=== PATIENT | female | born 1980 | race African-American/Black ===

== ENCOUNTER 2017-09-13 19:26 | Outpatient (CLI) | payer SELFPAY ==
[2017-09-13 20:03] VITALS: BP 124/75
[2017-09-13] MEDS ORDERED: LACTATED RINGERS 500 ML IV ONE (20:29)
[2017-09-13 21:04] LABS: Bilirubin,Urine NEG (Negative); Blood,Urine SM (Negative); Color,Urine Yellow (Yellow); Mucus,Urine FEW /HPF; Protein,Urine <15 mg/dL mg/dL (Negative)
== END 2017-09-13 22:08 | disposition home or self-care (01) ==
LOC: TRG 19:26
PROVIDERS: ATTEND Obstetrics & Gynecology
DX: O47.03 False labor before 37 completed weeks of gestation, third trimester (principal); Z3A.36 36 weeks gestation of pregnancy
CPT/HCPCS: 59025; 81001

== ENCOUNTER 2017-09-14 19:16 | Inpatient (IN) | payer OTHER ==
[2017-09-14] MEDS: LACTATED RINGERS 1,000 ML IV SCH ×2 (22:00→23:38)
[2017-09-14] MEDS ORDERED: LACTATED RINGERS 1,000 ML ONE (22:06)
[2017-09-14] MEDS ORDERED: PITOCin/NS 20 UNIT/1000ML DRIP 20,000 MILLIUNITS/1,000 ML BAG IV ONE (22:08)
[2017-09-14] MEDS ORDERED: SUBLIMAZE ONE (22:20)
[2017-09-14] MEDS ORDERED: SUBLIMAZE IV ONE (22:31)
[2017-09-14 22:44] LABS: Hematocrit 35.9 % (30.3-42.9); Hemoglobin 12.3 gm/dl (10.1-14.3); Mean Corpuscular HGB Conc 34 % (30-34); Mean Corpuscular Hemoglobin 31 pg (28-32); Mean Corpuscular Volume 90 fl (79-97); Platelet Count 172 K/mm3 (140-440); Red Blood Count 4.01 M/mm3 (3.65-5.03); Red Cell Distribution Width 14.7 % (13.2-15.2)
[2017-09-15] MEDS ORDERED: TYLENOL PO PRN (00:06)
[2017-09-15] MEDS ORDERED: BENADRYL PO PRN (00:06)
[2017-09-15] MEDS ORDERED: DULCOLAX PR PRN (00:06)
[2017-09-15] MEDS ORDERED: ZOFRAN IV PRN (00:06)
[2017-09-15] MEDS ORDERED: TUCKS PAD TP PRN (00:06)
[2017-09-15] MEDS ORDERED: MILK OF MAGNESIA PO PRN (00:06)
[2017-09-15] MEDS ORDERED: LANSINOH TP PRN (00:06)
[2017-09-15] MEDS ORDERED: NORCO 5/325 PO PRN (00:06)
[2017-09-15] MEDS ORDERED: PHENERGAN PO PRN (00:06)
--- NOTE | 2017-09-15 00:16 | History and Physical Report ---
History of Present Illness Date of examination: 09/14/17 Date of admission: 09/14/17 22:09 Chief complaint: Intense uterine contractions History of present illness: 36 yo Fe PEDRITO 10/05/17 37w0d presents in active labor. 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 records not available on admission (will request in am). Pt denies any medical history, problems with . 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 denies: smoking, alcohol abuse, prescription drug abuse, IV drug use - Obstetrical History Expected Date of Delivery: 10/05/17 Actual Gestation: 37 Week(s) 1 Day(s) : 11 Para: 7 Hx # Term Pregnancies: 7 Number of Pregnancies: 0 Spontaneous Abortions: 0 Induced : 3 Number of Living Children: 7 Medications and Allergies Allergies Allergy/AdvReac Type Severity Reaction Status Date / Time No Known Allergies Allergy Unverified 11/18/13 18:27 Home Medications Medication Instructions Recorded Confirmed Last Taken Type Vits96/Iron Fum/Folic 1 each PO QDAY 11/18/13 11/18/13 11/17/13 15:00 History [ Tablet] Ferrous Sulfate [Iron Supplement] 325 mg PO BID #60 tablet 11/19/13 Unknown Rx Ibuprofen [Motrin 600 MG tab] 600 mg PO Q6H #30 tablet 11/19/13 Unknown Rx oxyCODONE /ACETAMINOPHEN [Percocet 2 tab PO Q4H PRN #30 tablet 11/19/13 Unknown Rx 5/325 mg] Active Meds: Active Medications Acetaminophen (Tylenol) 650 mg PO Q4H PRN PRN Reason: Pain MILD(1-3)/Fever >100.5/CULVER Acetaminophen/Hydrocodone Bitart (Slemp 5/325) 2 each PO Q6H PRN PRN Reason: Pain, Moderate (4-6) Bisacodyl (Dulcolax) 10 mg RI BID PRN PRN Reason: Constipation Diphenhydramine HCl (Benadryl) 25 mg PO Q6H PRN PRN Reason: Itching Lactated Ringer's (Lactated Ringers) 1,000 mls @ 125 mls/hr IV DIRECT DERREK Last Admin: 09/14/17 23:38 Dose: 125 mls/hr Ibuprofen (Motrin) 600 mg PO Q6HR [facility] Influenza Virus Vaccine Quadrival (Fluarix Quad [id number](36 Mos+) 0.5 ml IM .ONCE ONE Stop: 09/15/17 12:01 Magnesium Hydroxide (Milk Of Magnesia) 30 ml PO HS PRN PRN Reason: Constipation Multi-Ingredient Ointment (Lansinoh) 1 applic TP PRN PRN PRN Reason: Sore Nipples Ondansetron HCl (Zofran) 4 mg IV Q8H PRN PRN Reason: Nausea And Vomiting Promethazine HCl (Phenergan) 25 mg PO Q6H PRN PRN Reason: Nausea And Vomiting Sodium Chloride (Sodium Chloride Flush Syringe 10 Ml) 10 ml IV PRN PRN PRN Reason: LINE FLUSH Witch Dorothea/Glycerin (Tucks Pad) 1 each TP PRN PRN PRN Reason: Hemorrhoid/cleansing/soothing Review of Systems All systems: negative Eyes: normal appearance Cardiovascular: no chest pain, no shortness of breath Respiratory: no shortness of breath Gastrointestinal: no abdominal pain, no nausea, no vomiting, no diarrhea Genitourinary: normal appearance, contractions, no leakage of fluid, no genital sores Rectal Exam: hemorrhoids Integumentary: no rash, no sores, no lesions - Vital Signs Vital signs: Vital Signs Pulse BP 67 117/76 09/14/17 19:43 09/14/17 19:43 Temp Pulse Resp BP Pulse Ox 98.1 F 68 18 115/57 100 09/14/17 22:29 09/15/17 00:13 09/14/17 22:29 09/15/17 00:06 09/15/17 00:13 - Physical Exam Cardiovascular: Regular rate, Normal S1, Normal S2 Lungs: Positive: Clear to auscultation, Normal air movement Abdomen: Positive: normal appearance, soft, normal bowel sounds. Negative: distention Genitourinary (Female): Positive: normal external genitalia, normal perenium Vagina: Positive: normal moisture Uterus: Positive: enlarged (Gravid) Anus/Rectum: Positive: normal perianal skin, hemorrhoids Extremities: Positive: normal Deep Tendon Reflex Grade: Normal +2 - Obstetrical FHR: category 1 Uterine Contraction Monitor Mode: External Cervical Dilatation: 7 (3/60/-3 in Triage) Cervical Effacement Percentage: 70 station: 0 Uterine Contraction Pattern: Regular Uterine Tone Measurement Phase: Resting Uterine Contraction Intensity: Strong/Firm Results Result Diagrams: 09/14/17 22:00 All other labs normal. Assessment and Plan A: [place]: PEDRITO 10/05/17: 37w0d Active labor Category 1 tracing P: Admit to L&D Routine antepartum orders Expect Will request records in am
--- NOTE | 2017-09-15 00:37 | Procedure Note ---
OB Delivery Note - Delivery Date of Delivery: 09/14/17 (23:49) Surgeon: AYSHA STOVER (SUSY) Estimated blood loss: 100cc - Vaginal Delivery presentation: vertex Delivery position: OP Delivery induction: none Delivery augmentation: rupture of membranes Delivery monitor: external FHT, external uterine Route of delivery: Delivery placenta: spontaneous Delivery cord: 3 umbilical vessels Episiotomy: none Delivery laceration: none Anesthesia: intravenous Delivery comments: viable female , straight OP position, over intact perineum at 23:49. Infant placed on mothers abdomen, [id number]. delayed cord clamping then cut by myself. Spontaneous gómez delivery of intact placenta at 23:55. FF@U-2, scant bleeding. No tears or lacerations. EBL 100cc. Infant and mother left in stable condition in L&D. - A at 1 minute: 8 at 5 minutes: 9 Gender: Female (3456 grams, 7lbs 10oz, 19")
[2017-09-15] MEDS ORDERED: SODIUM CHLORIDE FLUSH SYRINGE 10 ML IV PRN (01:00)
[2017-09-15] MEDS ORDERED: PITOCin/NS 20 UNIT/1000ML DRIP 20,000 MILLIUNITS/1,000 ML BAG IV ONE (01:11)
[2017-09-15] MEDS: MOTRIN PO SCH ×4 (01:43→18:35)
--- NOTE | 2017-09-15 10:28 | Progress Note ---
Assessment and Plan A: PP Day #1 Stable P: Follow routine orders D/C home in the AM RTO in 6 Weeks Subjective - Subjective Date of service: 09/15/17 Patient reports: appetite normal, voiding normally, pain well controlled, flatus , ambulating normally : doing well, bottle feeding (and ) Objective - Vital Signs Latest vital signs: Vital Signs Temp Pulse Resp BP BP Pulse Ox 09/15/17 08:20 98.0 F 59 L 20 102/54 99 09/15/17 06:03 18 09/15/17 01:43 20 09/15/17 01:04 61 132/58 09/15/17 01:03 67 99 09/15/17 00:58 65 99 09/15/17 00:53 64 98 09/15/17 00:49 63 18 121/56 121/56 100 09/15/17 00:48 65 100 09/15/17 00:43 72 98 09/15/17 00:38 64 98 09/15/17 00:34 65 114/56 09/15/17 00:33 65 18 114/56 98 09/15/17 00:28 72 98 09/15/17 00:24 78 90 09/15/17 00:23 76 99 09/15/17 00:20 70 18 121/56 99 09/15/17 00:19 70 121/56 09/15/17 00:18 71 99 09/15/17 00:13 68 100 09/15/17 00:08 69 100 09/15/17 00:06 98.2 F 70 18 115/57 115/57 99 09/15/17 00:03 70 99 09/14/17 23:28 90 90 09/14/17 23:27 89 93 09/14/17 23:22 87 97 09/14/17 23:17 86 98 09/14/17 23:12 70 99 09/14/17 23:07 65 97 09/14/17 23:06 64 93 09/14/17 22:29 98.1 F 73 18 129/80 98 09/14/17 22:19 18 09/14/17 19:43 67 117/76 Intake and Output 09/14/17 09/15/17 09/15/17 22:59 06:59 14:59 Intake Total 204.167 240 Balance 204.167 240 Intake: IV 204.167 Lactated Ringers 1,000 ml 204.167 @ 125 mls/hr IV DIRECT DERREK Rx#:[id number] Oral 240 Other: Total, Intake Amount 240 Weight 68.039 kg Estimated Blood Loss 100 - Exam Breasts: Present: normal Cardiovascular: Present: Regular rate Lungs: Present: Clear to auscultation, Normal air movement Abdomen: Present: normal appearance, soft, normal bowel sounds Uterus: Present: normal, firm, fundal height below umbilicus Extremities: Present: normal
--- NOTE | 2017-09-15 10:29 | Discharge Summary ---
Providers - Providers Date of Admission: 09/14/17 22:09 Date of discharge: 09/16/17 Attending physician: VIDYA BIRD MD Primary care physician: VIDYA BIRD MD Hospitalization Reason for admission: active labor Delivery: Episiotomy: none Laceration: none Other procedures: none complications: none Discharge diagnosis: IUP at term delivered [place] baby: female Condition at discharge: Good Disposition: DC-01 TO HOME OR SELFCARE Plan - Provider Discharge Summary Activity: routine, no sex for 6 weeks, no heavy lifting 4 weeks, no strenuous exercise Diet: routine Instructions: routine Additional instructions: [] Smoking cessation referral if applicable(refer to patient education folder for contact #) [] Refer to [facility] Booklet Call your doctor immediately for: * Fever > 100.5 * Heavy vaginal bleeding ( >1 pad per hour) * Severe persistent headache * Shortness of breath * Reddened, hot, painful area to leg or breast * Drainage or odor from incision. * Keep incision clean and dry at all times and follow doctor's instructions regarding bathing/showering - Follow up plan Follow up: VIDYA BIRD MD [Primary Care Provider] - 6 Weeks
[2017-09-15] MEDS ORDERED: Fluarix Quad 2017-2018(36 MOS+ IM ONE (12:00)
[2017-09-15 12:02] LABS: Hematocrit 30.5 % (30.3-42.9); Hemoglobin 10.7 gm/dl (10.1-14.3)
[2017-09-16] MEDS: MOTRIN PO SCH ×4 (00:22→18:38)
[2017-09-17] MEDS: MOTRIN PO SCH ×2 (00:10→05:35)
[2017-09-17 13:01] VITALS: BP 122/83
== END 2017-09-17 13:57 | disposition home or self-care (01) | DRG 775 ==
LOC: TRG 19:16 → LD 22:09 → OB 09-15 01:32
PROVIDERS: ADMIT Obstetrics & Gynecology; ATTEND Obstetrics & Gynecology
PROC: 10E0XZZ Delivery of Products of Conception, External Approach (ICD-10-PCS; principal; 2017-09-14)
DX: O80 Encounter for full-term uncomplicated delivery (principal); Z3A.37 37 weeks gestation of pregnancy; Z37.0 Single live birth; Z79.899 Other long term (current) drug therapy
CPT/HCPCS: 36415; 85014; 85018; 85027; 86592; 86850; 86900; 86901; 99211; A6250; G0463; J2590; J3010; J7120

== ENCOUNTER 2019-04-25 11:50 | Inpatient (IN) | payer OTHER ==
[2019-04-25] MEDS ORDERED: MINERAL OIL 30 ML ORAL LIQD PO PRN (11:54)
[2019-04-25] MEDS ORDERED: AMPICILLIN/NS 2 GM/100 ML 2 GM/100 ML BAG IV ONE (11:54)
[2019-04-25] MEDS ORDERED: LIDOCAINE (2%) 20 MG/1 ML VIAL 20 ML MDV INFILTRATI ONE (11:54)
[2019-04-25] MEDS ORDERED: TERBUTALINE 1 MG/1 ML INJ SUB-Q PRN (11:54)
[2019-04-25] MEDS ORDERED: TERBUTALINE 1 MG/1 ML INJ IVP PRN (11:54)
[2019-04-25] MEDS ORDERED: ePHEDrine SULFATE 50 MG/1 ML INJ IV PRN (11:54)
[2019-04-25] MEDS ORDERED: miSOPROStol 200 MCG TAB PR ONE (11:59)
[2019-04-25] MEDS ORDERED: CARBOPROST TROMETHAMINE 250 MCG/1 ML INJ IM ONE ×2 (12:00→12:02)
[2019-04-25] MEDS ORDERED: OXYTOCIN 20 UNIT/1000ML DRIP 20 UNITS/1,000 ML BAG IV SCH (12:00)
[2019-04-25] MEDS ORDERED: LACTATED RINGERS 1,000 ML IV SCH (12:00)
[2019-04-25] MEDS ORDERED: METHYLERGONOVINE MALEATE 0.2 MG/ML VIAL IM ONE (12:01)
[2019-04-25] MEDS ORDERED: OXYTOCIN 20 UNIT/1000ML DRIP 20,000 MILLIUNITS/1,000 ML BAG IV ONE ×2 (12:01)
[2019-04-25] MEDS ORDERED: miSOPROStol 200 MCG TAB ONE (12:03)
[2019-04-25] MEDS ORDERED: METHYLERGONOVINE 0.2 MG TABLET ONE (12:04)
[2019-04-25] MEDS ORDERED: miSOPROStol 100 MCG TAB ONE (12:05)
[2019-04-25] MEDS ORDERED: OXYTOCIN 10 UNIT/1 ML INJ ONE (12:08)
[2019-04-25 12:30] LABS: Hematocrit 37.6 % (30.3-42.9); Hemoglobin 12.8 gm/dl (10.1-14.3); Mean Corpuscular HGB Conc 34 % (30-34); Mean Corpuscular Volume 91 fl (79-97); Platelet Count 194 K/mm3 (140-440); Red Blood Count 4.15 M/mm3 (3.65-5.03); Red Cell Distribution Width 14.7 % (13.2-15.2)
[2019-04-25] MEDS: IBUPROFEN 800 MG TAB PO PRN (12:30)
--- NOTE | 2019-04-25 12:33 | History and Physical Report ---
History of Present Illness Date of examination: 04/25/19 Date of admission: 04/25/19 11:50 Chief complaint: Contractions per patient's daughter who translated for her. Expediency did not allow for Language line use. History obtained thru her daughter and previous admission records. 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: chlamydia, gonorrhea, hepatitis B, hepatitis C, herpes, HIV, syphilis - Obstetrical History Expected Date of Delivery: 05/10/19 (by LMP 08/03/2018) Actual Gestation: 37 Week(s) 6 Day(s) : 11 ( x8) Spontaneous Abortions: 3 Number of Living Children: 8 Medications and Allergies Allergies Allergy/AdvReac Type Severity Reaction Status Date / Time No Known Allergies Allergy Unverified 11/18/13 18:27 Home Medications Medication Instructions Recorded Confirmed Last Taken Type Vits96/Iron Fum/Folic 1 each PO QDAY 11/18/13 09/15/17 11/17/13 15:00 History [ Tablet] Ferrous Sulfate [Iron Supplement] 325 mg PO BID #60 tablet 11/19/13 09/15/17 Unknown Rx Ibuprofen [Motrin 600 MG tab] 600 mg PO Q6H #30 tablet 11/19/13 09/15/17 Unknown Rx oxyCODONE /ACETAMINOPHEN [Percocet 2 tab PO Q4H PRN #30 tablet 11/19/13 09/15/17 Unknown Rx 5/325 mg] Active Meds: Active Medications Ephedrine Sulfate (Ephedrine Sulfate) 10 mg IV Q2M PRN PRN Reason: Hypotension Ampicillin Sodium (Ampicillin/Ns 2 Gm/100 Ml) 2 gm in 100 mls @ 100 mls/hr IV ONCE ONE; Protocol Stop: 04/25/19 12:53 Lactated Ringer's (Lactated Ringers) 1,000 mls @ 125 mls/hr IV DIRECT DERREK Oxytocin/Sodium Chloride (Pitocin/Ns 20 Unit/1000ml Drip) 20 units in 1,000 mls @ 125 mls/hr IV DIRECT DERREK Ibuprofen (Ibuprofen) 800 mg PO Q8H PRN PRN Reason: Pain, Mild (1-3) Mineral Oil (Mineral Oil) 30 ml PO QHS PRN PRN Reason: Constipation Terbutaline Sulfate (Brethine) 0.25 mg SUB-Q ONCE PRN PRN Reason: Hyperstimulation/Hypertonicity Terbutaline Sulfate (Brethine) 0.25 mg IVP ONCE PRN PRN Reason: Hyperstimulation/Hypertonicity Review of Systems All systems: negative Genitourinary: leakage of fluid (since yesterday), contractions - Vital Signs Vital signs: Vital Signs Pulse BP 71 120/71 04/25/19 11:55 04/25/19 11:55 Temp Pulse Resp BP Pulse Ox 98.8 F 90 20 120/71 98 04/25/19 11:59 04/25/19 12:07 04/25/19 11:59 04/25/19 11:55 04/25/19 12:07 - Physical Exam Breasts: Positive: deferred Lungs: Positive: Normal air movement Abdomen: Positive: soft Genitourinary (Female): Positive: normal external genitalia, normal perenium Vulva: both: normal Anus/Rectum: Positive: normal perianal skin Extremities: Positive: normal. Negative: tenderness, edema - Obstetrical FHR: category 1 Uterine Contraction Monitor Mode: External Cervical Dilatation: 10 Cervical Effacement Percentage: 100 station: +2 Results All other labs normal. Assessment and Plan Anticipate vaginal delivery - Patient Problems (1) 37 weeks gestation of Current Visit: Yes Status: Acute (2) No care in current Current Visit: Yes Status: Acute (3) Active labor at term Current Visit: No Status: Acute
--- NOTE | 2019-04-25 12:35 | Procedure Note ---
OB Delivery Note - Delivery Date of Delivery: 04/25/19 Surgeon: MISHA REMY Estimated blood loss: 200cc - Vaginal Delivery presentation: vertex Delivery position: OA Intrapartum events: no care Delivery induction: none Delivery monitor: external FHT, external uterine Route of delivery: Delivery placenta: spontaneous (intact) Episiotomy: none Delivery laceration: none Anesthesia: none - A at 1 minute: 8 at 5 minutes: 9 Gender: Female (6lbs 3oz)
[2019-04-25] MEDS ORDERED: IBUPROFEN 600 MG TAB PO SCH (13:00)
[2019-04-25 13:31] LABS: Amphetamine Screen,Urine PRESUMPTIVE NEGATIVE; Benzodiazepines Screen,Urine PRESUMPTIVE NEGATIVE; Cannabinoid Screen,Urine PRESUMPTIVE NEGATIVE; Cocaine Screen,Urine PRESUMPTIVE NEGATIVE; Methadone Screen,Urine PRESUMPTIVE NEGATIVE; Opiate Screen,Urine PRESUMPTIVE NEGATIVE
[2019-04-25] MEDS ORDERED: diphenhydrAMINE 25 MG CAP PO PRN (15:52)
[2019-04-25] MEDS ORDERED: ACETAMINOPHEN 325 MG TAB PO PRN (15:52)
[2019-04-25] MEDS ORDERED: PROMETHAZINE 25 MG RECT SUPP PR PRN (15:52)
[2019-04-25] MEDS ORDERED: ONDANSETRON 4 MG/2 ML INJ IV PRN (15:52)
[2019-04-25] MEDS ORDERED: WITCH HAZEL/ GLYCERIN PAD TP PRN (15:52)
[2019-04-25] MEDS ORDERED: LANOLIN/ZINC/DIMETHICONE (LANSINOH) 7 GM TP PRN (15:52)
[2019-04-25] MEDS ORDERED: MAGNESIUM HYDROXIDE (MOM) ORAL LIQD UDC PO PRN (15:52)
[2019-04-25] MEDS ORDERED: PROMETHAZINE 25 MG TAB PO PRN (15:52)
[2019-04-25] MEDS: IBUPROFEN 600 MG TAB PO SCH (17:03)
[2019-04-26 00:30] LABS: Hematocrit 34.2 % (30.3-42.9); Hemoglobin 11.8 gm/dl (10.1-14.3)
[2019-04-26] MEDS: IBUPROFEN 800 MG TAB PO PRN (06:04)
[2019-04-26] MEDS ORDERED: TETANUS,DIPH,PERTUSS(ACELL) VACCINE 0.5 ML SYRINGE IM ONE (06:05)
--- NOTE | 2019-04-26 09:09 | Progress Note ---
Assessment and Plan A: Ms. Schultz is 38 y.o. s/p on 04/25/2019, no care, VSS, minimal bleeding, Fundus firm P: Continue with care Discharge home on 04/27/2019 Subjective - Subjective Patient reports: appetite normal, voiding normally, pain well controlled, flatus , ambulating normally : doing well Objective - Vital Signs Latest vital signs: Vital Signs Temp Pulse Resp BP BP Pulse Ox 04/26/19 04:00 98.6 F 66 18 114/62 04/25/19 20:00 98.6 F 66 16 114/76 04/25/19 17:03 20 04/25/19 14:35 98.7 F 58 L 20 113/68 04/25/19 13:56 58 L 131/60 04/25/19 13:40 59 L 113/66 04/25/19 13:25 60 120/71 04/25/19 13:10 65 116/57 04/25/19 12:55 64 123/75 04/25/19 12:41 64 120/66 04/25/19 12:30 64 113/61 04/25/19 12:07 90 98 04/25/19 12:02 84 100 04/25/19 11:59 98.8 F 20 04/25/19 11:57 75 100 04/25/19 11:55 71 120/71 Intake and Output 04/25/19 04/26/19 04/26/19 22:59 06:59 14:59 Intake Total 300 200 Balance 300 200 Intake: Oral 200 Intake, Free Water 300 Other: Total, Intake Amount 200 # Voids Void 1 - Exam Breasts: Present: deferred Cardiovascular: Present: Regular rate, Normal S1, Normal S2 Lungs: Present: Normal air movement Abdomen: Present: normal appearance, soft, normal bowel sounds Vulva: both: normal Uterus: Present: normal, fundal height at umbilicus Extremities: Present: normal Deep Tendon Reflex Grade: Normal +2 - Labs Labs: Abnormal lab results 04/25/19 Range/Units 11:59 WBC 11.4 H (4.5-11.0) K/mm3
[2019-04-26] MEDS: IBUPROFEN 600 MG TAB PO SCH ×2 (11:43→17:31)
[2019-04-27] MEDS: IBUPROFEN 600 MG TAB PO SCH ×2 (06:13→11:33)
--- NOTE | 2019-04-27 07:31 | Discharge Summary ---
Providers - Providers Date of Admission: 04/25/19 11:50 Date of discharge: 04/27/19 (Pt desires to go home) Attending physician: MISHA REMY 04/25/19 15:52 Consult to Case Management [CONS] Routine Services Needed at Discharge: Shipping Agent Notified:: yes Phone number called:: [phone] Was contact made?: Yes If yes, spoke with:: shayna Time called:: 12:01 Comment:: left message Additional Physician Instructions: No care Consult to Financial Management [CONS] Routine Reason For Exam: assistance with , SNS Primary care physician: TROUBLE OPERATOR Hospitalization Reason for admission: active labor, IUP at term Delivery: Episiotomy: none Laceration: none Other procedures: none complications: none Discharge diagnosis: IUP at term delivered [place] baby: female Hospital course: S: Use of security solutions engineer number [id number]. Pt doing well and is ready to go home. States ambulating, passing flatus, and voiding okay. States wants IUD for control. O: VSS, minimal rubra lochia, fundus firm. H/H 11.8/34.2 A: 38 y.o. @ term, no PNC, P: D/C home with instructions Follow up in clinic in 4 weeks for visit. Condition at discharge: Good Disposition: DC-01 TO HOME OR SELFCARE Plan - Provider Discharge Summary Activity: routine, no sex for 6 weeks, no heavy lifting 4 weeks, no strenuous exercise Diet: routine Instructions: routine Additional instructions: [] Smoking cessation referral if applicable(refer to patient education folder for contact #) [] Refer to [facility] Booklet Call your doctor immediately for: * Fever > 100.5 * Heavy vaginal bleeding ( >1 pad per hour) * Severe persistent headache * Shortness of breath * Reddened, hot, painful area to leg or breast * Drainage or odor from incision. * Keep incision clean and dry at all times and follow doctor's instructions regarding bathing/showering - Follow up plan Follow up: PRIMARY CARE, [Primary Care Provider] - 7 Days SANAZ JULIO CNM [Advanced Practice Nurse] - 05/28/19 (Congratulations!!! You may follow up with our office for a visit in 4 weeks. Call the office for an appointment. You may take over the counter Motrin and Tylenol for pain. Follow the directions on the bottle. [address] [place] [address] ) Forms: [facility] Discharge Summary
[2019-04-27 17:04] VITALS: BP 112/67
== END 2019-04-27 18:00 | disposition home or self-care (01) | DRG 807 ==
LOC: LD 11:50 → OB 15:20
PROVIDERS: ADMIT Obstetrics & Gynecology; ATTEND Obstetrics & Gynecology
PROC: 10E0XZZ Delivery of Products of Conception, External Approach (ICD-10-PCS; principal; 2019-04-25)
PROC: 3E0234Z Introduction of Serum, Toxoid and Vaccine into Muscle, Percutaneous Approach (ICD-10-PCS; 2019-04-26)
DX: O80 Encounter for full-term uncomplicated delivery (principal); Z37.0 Single live birth; Z3A.37 37 weeks gestation of pregnancy; Z23 Encounter for immunization; Z79.899 Other long term (current) drug therapy
CPT/HCPCS: 36415; 80307; 85014; 85018; 85027; 86592; 86706; 86762; 86803; 86850; 86900; 86901; 87806; 90715; G0378; J2210; J2590